=== PATIENT | female | born 1950 | race Caucasian/White ===

== ENCOUNTER 2019-07-09 09:00 | Outpatient (RCR) | payer MEDICARE, SELFPAY ==
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
--- NOTE | 2019-07-09 09:46 | PTOPEVAL ---
PHYSICAL THERAPY DISCHARGE SUMMARY Thank you for referring Eileen to [facility]. She has met all goals set. I agree with Eileen's discharge from PT. Referring Physician Date Admitting Provider: Attending Provider: Ita Boggs DO Referring Provider: *PT Outpatient Evaluation Start: 05/21/19 12:42 Freq: Status: Active Protocol: Document 07/09/19 09:07 BEBE (Rec: 07/09/19 09:45 BEBE [email or web address]) Therapy Assessment Status Assessment Status Assessment Status Discharge Evaluation Information Problem Subjective Information Eileen reports that she no Query Text:As Reported By Patient/ longer has to get up at night Family for urination. She is able to perform her HEP on a regular basis. Pad useage has decreased by 50% and the pads are not soaked. She states that she uses deep breathing effectively in controlling urge sensation. She is now able to go 3 hours between urinations. She is so glad that she came to PT for pelvic floor strengthening. Pain Assessment Timing of Pain Assessment Timing of Pain Assessment Assessment Self Report Self Report Pain Level 0 Pain Score Pain Score 0: Self Report Pelvic Health Evaluation Pelvic Floor Assessment Sustained Levator Ani Strength good lift present (from external palpation) able to hold x 10 counts Quick Levator Ani Contraction in 15 8 reps Seconds PT Clinical Summary Clinical Summary Protocol: PTEVCODE Clinical Summary Incontinence Impact Questionnaire - 0% initially 0% Urogenital Distress Inventory - 16.7% initially 44.4% Eileen has done well in PT for levator ani strengthening, incorporation of urge strategies and has met all goals set. HEP and urge strategies were reviewed today . She is to continue with her HEP and call if she has any questions.
== END 2019-07-09 10:43 | disposition home or self-care (01) ==
LOC: ANHPT 09:00
PROVIDERS: PCP Internal Medicine; Visit Provider Obstetrics & Gynecology
DX: N39.3 Stress incontinence (female) (male) (principal)
CPT/HCPCS: 97110; 97162

== ENCOUNTER → 2020-12-29 08:54 | Outpatient (CLI) | payer MEDICARE, SELFPAY ==
--- NOTE | ~2020-12-29 | CT_ITS ---
EXAMINATION: CT sinus wo con DATE: 12/29/2020 09:09 INDICATION: Chronic sinusitis TECHNIQUE: Computed tomography (CT) of the paranasal sinuses was performed without intravenous contra st. The dose-length product was 242.85 mGy-cm. Automated exposure control and iterative reconstructio n technique were employed. COMPARISON: None FINDINGS: There is mucosal thickening of the left maxillary sinus with mild mucoperiosteal reaction. There is an adjacent dental eugene. Leftward nasal septal deviation. Ostiomeatal units are patent no ai r-fluid levels. Mastoids are pneumatized. IMPRESSION: 1. Chronic left maxillary sinusitis with adjacent dental eugene. Reviewed, dictated and finalized at location A.
== END ==
PROVIDERS: PCP Internal Medicine; Visit Provider Otolaryngology
DX: J32.9 Chronic sinusitis, unspecified (principal)
CPT/HCPCS: 70486

== ENCOUNTER 2024-05-06 14:19 | Outpatient (CLI) | payer MEDICARE, SELFPAY ==
--- NOTE | ~2024-05-06 | XR_ITS ---
XR knee LT 3V Ordering provider: Emery Blanchard, History: . PAIN OF LEFT KNEE JOINT BRUISING ANTERIORLY . Comparison: None. FINDINGS: BONES: No acute fracture or dislocation. Postoperative changes in the tibia and femur. JOINT SPACES: Normal. SOFT TISSUES: Normal. IMPRESSION: No acute osseous abnormality left knee. Postoperative changes in the femur and the tibia. Reviewed, dictated and finalized at location A. ROSTOMAL THERAPY NURSE
== END 2024-05-06 14:20 | disposition home or self-care (01) ==
PROVIDERS: PCP Internal Medicine; Visit Provider Internal Medicine
DX: M25.562 Pain in left knee (principal)
CPT/HCPCS: 73562

== ENCOUNTER 2024-08-05 13:26 | Outpatient (CLI) | payer MEDICARE, SELFPAY ==
[2024-08-05 14:59] LABS: Influenza A QL RT-PCR Positive (Negative); Influenza B QL RT-PCR Negative (Negative); RSV RNA, RT-PCR Negative (Negative); SARS-CoV-2 RNA PCR Negative (Negative)
== END 2024-08-05 13:27 | disposition home or self-care (01) ==
LOC: ANHLAB 13:28
PROVIDERS: PCP Internal Medicine; Visit Provider Internal Medicine
DX: R50.9 Fever, unspecified (principal); Z20.822 Contact with and (suspected) exposure to COVID-19
CPT/HCPCS: 87637